=== PATIENT | male | born 1985 | race Caucasian/White ===

== ENCOUNTER 2023-08-17 12:54 | Emergency (ER) | payer MEDICAID ==
[~2023-08-17] VITALS: Ht 167.6 cm; Wt 63.0 kg
[~2023-08-17 12:54] MED LIST: MELA3TAB40 PO; METO-385 PO; MIDO5TAB4 PO
[2023-08-17 13:28] VITALS: O2SAT 100
[2023-08-17 18:40] VITALS: BP 134/81; PULSE 101; RESP 18; TEMP 98.2
== END 2023-08-17 18:59 | disposition home or self-care (01) ==
LOC: ER 12:54
DX: Z48.00 Encounter for change or removal of nonsurgical wound dressing (principal)
CPT/HCPCS: 99281